=== PATIENT | female | born 1980 | race Caucasian/White ===

== ENCOUNTER 2016-03-07 16:52 | Inpatient (IN) | payer OTHER ==
[~2016-03-07] VITALS: Ht 157.5 cm; Wt 53.5 kg
[2016-03-07 19:14] LABS: HEMATOCRIT 39 % (33-45); HEMOGLOBIN 11.9 g/dL (11.5-14.8); MEAN CORPUSCULAR HEMOGLOBIN 25 PG (26.0-33.0); MEAN CORPUSCULAR HGB CONC 31 g/dl (31.0-36.0); MEAN CORPUSCULAR VOLUME 82 fL (82-100); PLATELET COUNT (AUTO) 436 /CMM (150-450); RED BLOOD CELL COUNT(AUTO) 4.73 MIL/uL (4.0-5.2); WHITE BLOOD COUNT (AUTO) 7.9 K/uL (4.3-11.0)
[2016-03-07 19:25] LABS: CREATININE 1.2 mg/dL (0.6-1.3); POTASSIUM 4.1 mmol/L (3.5-5.1)
[2016-03-07] MEDS ORDERED: IV NS 0.9% 1,000 ML BAG IV ONE ×2 (19:30→20:30)
[2016-03-07] MEDS ORDERED: IV NS 0.9% 1,000 ML ONE ×2 (19:34→20:04)
[2016-03-07] MEDS ORDERED: IV SET PRIMARY 1 EA INFUS.SET MC ONE ×2 (19:34→20:04)
[2016-03-07] MEDS ORDERED: INSULIN REGULAR, HUMAN 100 UNIT in IV NS 0.9% 99 ML IV STA ×2 (19:35)
[2016-03-07 20:16] LABS: LYMPHOCYTES % (MANUAL) 44 % (16-48); PLATELET ESTIMATE ADEQUATE
[2016-03-07 20:17] LABS: ANISOCYTOSIS 1+
[2016-03-07] MEDS ORDERED: IV NS 0.9% 1,000 ML IV PRN (20:21)
[2016-03-07] MEDS ORDERED: ONDANSETRON HCL/PF 4 MG/2 ML VIAL IVP PRN (20:30)
[2016-03-07] MEDS ORDERED: MAGNESIUM HYDROXIDE 30 ML UDC PO PRN (20:30)
[2016-03-07] MEDS ORDERED: INSULIN REGULAR, HUMAN 100 UNIT/ML 10 ML VIAL IV ONE (20:30)
[2016-03-07] MEDS ORDERED: MAG HYDROX/AL HYDROX/SIMETH 30 ML UDC PO PRN (20:30)
[2016-03-07] MEDS ORDERED: Z GUARD REMEDY 2 OZ OINT TP PRN (20:30)
[2016-03-07] MEDS ORDERED: ACETAMINOPHEN 325 MG TABLET PO PRN (20:30)
[2016-03-07] MEDS ORDERED: DEXTROSE 50%-WATER 50 ML DISP.SYRIN IV PRN (20:30)
[2016-03-07] MEDS ORDERED: ZOLPIDEM TARTRATE 5 MG TABLET PO PRN (20:30)
[2016-03-07] MEDS ORDERED: MORPHINE SULFATE INJ 2 MG/ML DISP.SYRIN IV PRN (20:30)
[2016-03-07] MEDS: BLOOD SUGAR DIAGNOSTIC 1 EACH STRIP IN SCH ×2 (21:00→23:45)
[2016-03-07] MEDS ORDERED: INSULIN REGULAR, HUMAN 100 UNIT/ML 10 ML VIAL ONE (21:02)
[2016-03-07 21:07] LABS: KETONES,URINE 40 (NEGATIVE); LEUKOCYTE ESTERASE ,URINE Negative (NEGATIVE); PH,URINE 5.5 (5.0-8.0)
[2016-03-07 21:10] LABS: ADD UA MICROSCOPIC YES
[2016-03-07] MEDS ORDERED: ENOXAPARIN SODIUM 40 MG/0.4 ML DISP.SYRIN SQ SCH (21:42)
[2016-03-07 22:00] VITALS: BP 114/75
[2016-03-07] MEDS ORDERED: INSULIN DETEMIR 100 UNIT/ML CARTRIDGE SQ SCH (22:00)
[2016-03-07 22:23] LABS: ADD URINE CULTURE NO; RBC,URINE 0-2 /HPF (0-2)
[2016-03-07] MEDS: INSULIN REGULAR, HUMAN 100 UNIT/ML 3 ML VIAL SQ PRN (23:24)
[2016-03-07] MEDS: HYDROCODONE/APAP 5/325MG 1 EACH TABLET PO PRN (23:29)
[2016-03-07] MEDS ORDERED: IV SET PRIMARY PUMP SET 1 EA INFUS.SET MC ONE (23:32)
[2016-03-08] VITALS: BP 112/75
[2016-03-08] MEDS: BLOOD SUGAR DIAGNOSTIC 1 EACH STRIP IN SCH ×6 (01:19→17:15)
[2016-03-08] MEDS: INSULIN REGULAR, HUMAN 100 UNIT/ML 3 ML VIAL SQ PRN ×5 (01:25→17:48)
[2016-03-08 04:00] VITALS: BP 100/65
[2016-03-08] MEDS ORDERED: IV SET PRIMARY PUMP SET 1 EA INFUS.SET MC ONE (06:53)
[2016-03-08 08:00] VITALS: BP 110/74
[2016-03-08 08:39] LABS: BASOPHILS % (AUTO) 0.5 % (0.0-2.0); DIFF TOTAL % 100 %; EOSINOPHILS # (AUTO) 0.3 /CMM (0.0-0.7); EOSINOPHILS % (AUTO) 3.5 % (0.0-6.0); HEMATOCRIT 30 % (33-45); HEMOGLOBIN 9.7 g/dL (11.5-14.8); LYMPHOCYTES # (AUTO) 3.9 /CMM (0.8-4.8); LYMPHOCYTES % (AUTO) 53.3 % (20.0-44.0); MEAN CORPUSCULAR HEMOGLOBIN 26 PG (26.0-33.0); MEAN CORPUSCULAR HGB CONC 32 g/dl (31.0-36.0); MEAN CORPUSCULAR VOLUME 81 fL (82-100); MONOCYTES # (AUTO) 0.6 /CMM (0.1-1.30); MONOCYTES % (AUTO) 8.8 % (2.0-12.0); NEUTROPHILS # (AUTO) 2.5 /CMM (1.8-8.9); NEUTROPHILS % (AUTO) 33.9 % (43.0-81.0); PLATELET COUNT (AUTO) 338 /CMM (150-450); RED BLOOD CELL COUNT(AUTO) 3.73 MIL/uL (4.0-5.2); WHITE BLOOD COUNT (AUTO) 7.3 K/uL (4.3-11.0)
[2016-03-08] MEDS ORDERED: PANTOPRAZOLE 40 MG VIAL IV SCH (09:00)
[2016-03-08 09:07] LABS: THYROID STIMULATING HORMONE 1.392 uIU/mL (0.358-3.74)
[2016-03-08 09:10] LABS: ALBUMIN 2.9 g/dL (3.4-5.0); BILIRUBIN,TOTAL 0.1 mg/dL (0.2-1.0); CREATININE 0.7 mg/dL (0.6-1.3); PHOSPHORUS 1.9 mg/dL (2.5-4.9); POTASSIUM 3.5 mmol/L (3.5-5.1); TOTAL PROTEIN, SERUM 6.6 g/dL (6.4-8.2)
[2016-03-08] MEDS: HYDROCODONE/APAP 5/325MG 1 EACH TABLET PO PRN (11:07)
[2016-03-08] MEDS ORDERED: K PHOS NEUTRAL 250 MG TABLET PO ONE (11:30)
[2016-03-08 12:00] VITALS: BP 131/89
[2016-03-08] MEDS ORDERED: SECONDARY IV SET 1 EA INFUS.SET MC ONE (12:07)
[2016-03-08] MEDS: Magnesium 1GM/D5W 100ML PREMIX 100 ML IV SCH ×2 (12:10→13:15)
[2016-03-08 16:00] VITALS: BP 109/71
== END 2016-03-08 18:10 | disposition home or self-care (01) | DRG 420 ==
LOC: ER 16:56 → TELE-TD 21:18 → MEDSG1 03-08 15:05
PROVIDERS: ADMIT Family Medicine; ATTEND Family Medicine
DX: E11.00 Type 2 diabetes mellitus with hyperosmolarity without nonketotic hyperglycemic-hyperosmolar coma (NKHHC) (principal); G62.9 Polyneuropathy, unspecified; E11.65 Type 2 diabetes mellitus with hyperglycemia; E87.1 Hypo-osmolality and hyponatremia; E86.0 Dehydration; F17.210 Nicotine dependence, cigarettes, uncomplicated; G89.29 Other chronic pain; M54.30 Sciatica, unspecified side; Z79.4 Long term (current) use of insulin; F99 Mental disorder, not otherwise specified; Z91.14 Patient's other noncompliance with medication regimen
CPT/HCPCS: 36415; 80048-TC; 80053-TC; 80061-TC; 81000-TC; 82962-TC; 83690-TC; 83735-TC; 84100-TC; 84443-TC; 84703-TC; 85025-TC; 87081-TC; A4606; A6403; C9113; J1650; J1815; J3475; J7030; Z7610

== ENCOUNTER 2016-03-19 22:36 | Emergency (ER) | payer OTHER | END 2016-03-19 23:12 | disposition left against medical advice (07) | LOC: ER 22:38 | DX: Z53.21 Procedure and treatment not carried out due to patient leaving prior to being seen by health care provider (principal) ==